=== PATIENT | male | born 1975 | race Two or more races ===

== ENCOUNTER 2021-08-24 20:39 | Emergency (ER) | payer OTHER ==
[2021-08-24 20:49] VITALS: TEMP 98.1; BMI 35.0
[2021-08-24] MEDS ORDERED: ACETAMINOPHEN 1000 MG/100 ML BAG IVPB ONE (22:54)
[2021-08-24] MEDS ORDERED: LIDOCAINE 5% TOPICAL PATCH TP ONE (22:54)
[2021-08-24] MEDS ORDERED: LIDOCAINE 5% TOPICAL PATCH ONE (23:04)
[2021-08-24] MEDS ORDERED: ACETAMINOPHEN INJECTION 100 ML IVPB ONE (23:04)
[2021-08-24 23:45] LABS: URINE APPEARANCE CLEAR; URINE BILIRUBIN NEGATIVE (NEGATIVE); URINE COLOR YELLOW; URINE GLUCOSE (UA) NEGATIVE (NEGATIVE); URINE KETONE NEGATIVE (NEGATIVE); URINE LEUK ESTERASE NEGATIVE (NEGATIVE); URINE NITRITE NEGATIVE (NEGATIVE); URINE PROTEIN NEGATIVE (NEGATIVE); URINE UROBILINOGEN 0.2 mg/dL (0.2-1.0)
[2021-08-24 23:49] LABS: BASO % 0.8 % (0-2.0); EOS % 5.8 % (0-4.5); HEMATOCRIT 49.9 % (35.4-49); HEMOGLOBIN 16.8 GM/dL (11.7-16.9); LYMPH % 30.5 % (8-40); MCHC 33.8 g/dl (32.0-35.9); MEAN CELL VOLUME 88.7 fl (80-96); MEAN PLT VOLUME 7.8 fl (7.5-11.1); MONO % 12.6 % (3.8-10.2); NEUT % 50.3 % (42.8-82.8); PLATELET COUNT 282 10^3/uL (134-434); RBC 5.62 M/mm3 (4.00-5.60); RDW 13.1 % (11.9-15.9); WHITE BLOOD COUNT 6.2 K/mm3 (4.0-10.0)
[2021-08-25 00:01] LABS: ALBUMIN 4.3 g/dl (3.4-5.0); BLOOD UREA NITROGEN 16.9 mg/dL (7-18); CALCIUM 9.1 mg/dL (8.5-10.1); MAGNESIUM 2.5 mg/dL (1.8-2.4)
[2021-08-25 00:07] LABS: BILIRUBIN,TOTAL 0.3 mg/dL (0.2-1); TOT PROT 8.1 g/dl (6.4-8.2)
[2021-08-25] MEDS ORDERED: morphine CARPU-JECT 4 MG/1 ML DISP.SYRIN IVPUSH ONE (01:33)
[2021-08-25] MEDS ORDERED: morphine SULFATE 4 MG/ML VIAL ONE (02:01)
[2021-08-25 02:14] VITALS: BP 147/105; PULSE 55
[2021-08-25] MEDS ORDERED: KETOROLAC TROMETHAMINE 30 MG/1 ML VIAL IVPUSH ONE (03:02)
[2021-08-25] MEDS ORDERED: KETOROLAC TROMETHAMINE 30 MG/1 ML VIAL ONE (03:27)
[2021-08-25] MEDS ORDERED: LIDOCAINE PATCH REMOVAL MC ONE (22:00)
== END 2021-08-25 03:36 | disposition home or self-care (01) ==
LOC: JER 20:39
PROC: 3E0333Z Introduction of Anti-inflammatory into Peripheral Vein, Percutaneous Approach (ICD-10-PCS; principal; 2021-08-24)
PROC: 3E0333Z Introduction of Anti-inflammatory into Peripheral Vein, Percutaneous Approach (ICD-10-PCS; 2021-08-24)
PROC: 3E033NZ Introduction of Analgesics, Hypnotics, Sedatives into Peripheral Vein, Percutaneous Approach (ICD-10-PCS; 2021-08-24)
DX: M54.50 Low back pain, unspecified (principal); K59.00 Constipation, unspecified; R10.32 Left lower quadrant pain
CPT/HCPCS: 36415; 72131-TC; 74176-TC; 80053; 81003; 83605; 83735; 85025; 87086; 99285-25

== ENCOUNTER 2021-11-02 11:26 | Emergency (ER) | payer OTHER ==
[2021-11-02 11:50] VITALS: BMI 33.5
[2021-11-02 14:34] LABS: BASO % 0.6 % (0-2.0); EOS % 4.3 % (0-4.5); HEMATOCRIT 44.2 % (35.4-49); HEMOGLOBIN 15.3 GM/dL (11.7-16.9); LYMPH % 33.6 % (8-40); MCH 30.2 pg (25.7-33.7); MCHC 34.7 g/dl (32.0-35.9); MEAN PLT VOLUME 7.7 fl (7.5-11.1); NEUT % 48.5 % (42.8-82.8); PLATELET COUNT 249 10^3/uL (134-434); RBC 5.08 M/mm3 (4.00-5.60); RDW 13.5 % (11.9-15.9); WHITE BLOOD COUNT 4.8 K/mm3 (4.0-10.0)
[2021-11-02 14:59] LABS: ALBUMIN 3.8 g/dl (3.4-5.0); BLOOD UREA NITROGEN 12.9 mg/dL (7-18); CALCIUM 8.6 mg/dL (8.5-10.1)
[2021-11-02 15:02] LABS: CREATININE 0.9 mg/dL (0.55-1.3)
[2021-11-02 15:04] LABS: BILIRUBIN,TOTAL 0.8 mg/dL (0.2-1); TOT PROT 7.2 g/dl (6.4-8.2)
[2021-11-02 17:24] VITALS: BP 142/92; PULSE 55; RESP 18; TEMP 97.6
== END 2021-11-02 19:47 | disposition home or self-care (01) ==
LOC: JER 11:26
DX: R42 Dizziness and giddiness (principal); R07.9 Chest pain, unspecified
CPT/HCPCS: 36415; 71046-TC-FY; 80053; 84484; 85025; 93005; 93010; 99285-25

== ENCOUNTER 2022-03-31 00:50 | Emergency (ER) | payer OTHER ==
[2022-03-31 01:02] VITALS: TEMP 98.1; BMI 34.8
[2022-03-31] MEDS ORDERED: ASPIRIN 81 MG CHEWABLE TABLETS PO ONE (01:22)
[2022-03-31] MEDS ORDERED: ASPIRIN 81 MG CHEWABLE TABLETS ONE (01:30)
[2022-03-31 01:48] LABS: EOS % 3.8 % (0-4.5); LYMPH % 28.7 % (8-40); MCHC 33.4 g/dl (32.0-35.9); MEAN PLT VOLUME 7.2 fl (7.5-11.1); MONO % 9.6 % (3.8-10.2); NEUT % 56.9 % (42.8-82.8); PLATELET COUNT 258 10^3/uL (134-434); RBC 5.51 M/mm3 (4.00-5.60); RDW 13.7 % (11.9-15.9); WHITE BLOOD COUNT 6.1 K/mm3 (4.0-10.0)
[2022-03-31 02:17] LABS: CALCIUM 8.8 mg/dL (8.5-10.1)
[2022-03-31 02:18] LABS: ALBUMIN 3.9 g/dl (3.4-5.0); BLOOD UREA NITROGEN 13.6 mg/dL (7-18); MAGNESIUM 2.2 mg/dL (1.8-2.4)
[2022-03-31 02:20] LABS: CREATININE 0.9 mg/dL (0.55-1.3); INR 1.03 (0.83-1.09); PROTHROMBIN TIME (PATIENT) 11.9 SEC (9.7-13.0)
[2022-03-31 02:22] LABS: ACTIVATED PTT 34.7 SECONDS (25.2-36.5); BILIRUBIN,TOTAL 0.5 mg/dL (0.2-1); TOT PROT 7.4 g/dl (6.4-8.2)
[2022-03-31 04:48] VITALS: BP 142/90; PULSE 58; RESP 18
== END 2022-03-31 04:48 | disposition home or self-care (01) ==
LOC: JER 00:50
DX: R07.9 Chest pain, unspecified (principal); I10 Essential (primary) hypertension
CPT/HCPCS: 0241U-QW; 36415; 71045-TC-FY; 80053; 82962; 83690; 83735; 84484; 85025; 85610; 85730; 93005; 93010; 99285-25